=== PATIENT | male | born 1965 | race Caucasian/White ===

== ENCOUNTER 2023-06-07 13:02 | Emergency (ER) | payer OTHER, SELFPAY ==
[2023-06-07 13:04] VITALS: BP 134/85
--- NOTE | 2023-06-07 14:04 | ED.GENMED ---
History of Present Illness
General
Chief Complaint: Fall
Source: patient and spouse
Time Seen by Provider: 06/07/23 13:55
Travel History
Have you had any contact with someone who has COVID-19?: No
Do you have any symptoms of coronavirus? Fever > 100 degrees, chills, cough, shortness of breath, sore throat, loss of taste or smell, muscle aches, or headache?: No
History of Present Illness
History of Present Illness:
57-year-old male with past medical history of chronic back pain and lower extremity neuropathy, hypertension, GERD, diabetes presenting to the emergency department. He was at the top of the stairs when his left leg gave out from under him and he
slid approximately 10 stairs down striking the back of his head and lower back on the stairs but noting his right foot is what is bothering him the most. Patient did have some skin tears to the dorsal aspect of multiple toes. At baseline patient
already has ambulatory dysfunction secondary to the paresthesias/neuropathy. Patient follows with a chronic pain specialist with whom he has an appointment with in 2 weeks. He has a spinal stimulator in place and has a pain pump but that is
currently turned off.
Past History
Past History
ED Past Medical History: Cancer (Prostate), GERD, HTN, NIDDM, Other (chronic back and neck pain) and Other (Neuropathy both lower extremities)
ED Past Surgical History: Orthopedic (back surgery) and Urological
Social History
Tobacco: Former smoker
Alcohol: None
Drug: None
Personal:
Living: with family
Review of Systems
Review of Systems
All Other Systems: ROS reviewed and negative except as documented in HPI and ROS
Phy Exam
Physical Exam
Physical Exam:
VITAL SIGNS: Vital signs reviewed, cooperative
DISTRESS: No active disease
EYES: Pupils reactive, no orbital trauma
NOSE: No deformity or epistaxis
FACE AND SCALP: No scalp or facial trauma, external canals no blood
NECK: Supple nontender
BACK: Back nontender, pelvis stable to compression, pain pump to left lower back
RESPIRATORY: No distress, breath sounds normal, no tender chest wall
CARDIAC: No murmur, pulses equal and strong
ABDOMEN: Soft nontender bowel sounds normal, pain pump to RLQ
SKIN: multiple small skin tears/abrasions over dorsal aspect right foot concentrated around the toes/digits without active bleeding no bleeding, color normal
EXTREMITIES: TTP to 4th-5th digit of RLE
NEUROLOGICAL: Alert, oriented, no motor deficits
PSYCH: Mood affect normal
Scores
Heart Failure Risk
Heart Failure Risk Score: Not Applicable
Heart Score for Chest Pain Patients
STEMI patient?: Not applicable
Withdrawal Assessment of Alcohol
Withdrawal Assessment Completed?: Not applicable
Course
Orders/Labs/Results
Orders:
Orders
06/07/23 14:01
CT Head W/o Iv Contrast Urgent
Comment:
Reason For Exam: fall down flight of stairs, head strike
CR Foot - Right Min 3 Views Urgent
Comment:
Reason For Exam: fall, pain across all toes/digits
06/07/23 15:05
Ortho Boot Right- Treatment ONCE
Short or tall?: Tall
Walker [Treatment- Walker] ONCE
06/07/23 15:57
Tetanus/Diphth/Acelpertussis [Adacel] 0.5 ml IM .ONCE ONE
Vital Signs
Initial and Last Documented VS:
Initial Vital Signs
Temp Pulse Resp BP Pulse Ox
98.3 F 59 18 134/85 98
06/07/23 13:04 06/07/23 13:04 06/07/23 13:04 06/07/23 13:04 06/07/23 13:04
Last Documented Vital Signs
Temp Pulse Resp BP Pulse Ox
98.3 F 64 18 134/85 100
06/07/23 13:04 06/07/23 16:11 06/07/23 13:04 06/07/23 13:04 06/07/23 16:11
MDM/Problems Addressed
Differential Diagnosis Includes:
Superficial head injury, foot contusion, fracture, less concern for intracranial bleed or fracture
MDM/Problems Addressed:
57-year-old male presenting to the emergency department for evaluation after an accidental fall down approximately 10 steps, patient notes that he initially went up into the air and landed on his back/head and then slid down the remaining steps.
Patient states the area of most concern is the right fourth and fifth digit on his foot. He believes his tetanus vaccine is up-to-date. Use of anticoagulants but given the mechanism will obtain CT of the head. Assessment following.
*Radiology
Radiology exam reviewed: preliminary read by ED provider (Fracture of the distal phalanx of the great toe. There is also a fourth metatarsal fracture of the right foot.) and radiology read reviewed (CT of the head is negative for any acute
pathology)
*Pulse Oximetry
Patient hypoxic: no
*Critical Care Note
Total Time (30-74mins, 75-104mins- exclusive of procedures): Not Applicable
Patient Management
Discussion with other providers: Correction Officer Supervisor
Escalation/DeEscalation of care consider admission/obs:
Patient's x-ray of the foot reveals a fracture of the great toe proximal phalanx there is also a fourth metatarsal fracture.. Due to his history of neuropathy I notified patient's engineering inspector, Dr. Meehan, who agrees with plan for orthopedic
boot and walker for stability and will follow-up with the patient closely for continued outpatient monitoring. Patient and spouse contacted family doctor and patient does need a tetanus vaccine so we will update this for the patient prior to
discharge. There precautions but otherwise stable for discharge home.
ED Attending Note
-
Portions of this chart may have been created with voice recognition software.� Occasional wrong word or��sound alike� substitutions may have occurred due to the inherent limitations of voice recognition software.
Discharge Plan
Departure
Patient Disposition: Home (Routine Discharge)
Date of Disposition: 06/07/23
Time of Disposition: 15:53
Patient with high blood pressure during this ER visit?: No
Discharge Problem:
Closed fracture of fourth metatarsal of right foot, Closed fracture of right great toe, Fall down stairs
Instructions: Foot Fracture (DC)
Prescriptions:
No Action
metformin 500 MG tablet
500 mg PO BID@0800,1700 30 Days Qty: 60 0RF
atorvastatin 80 mg tablet
80 mg PO QPM
atenolol 100 mg tablet
100 mg PO DAILY
morphine 30 mg tablet extended release
30 mg PO Q12H
Patient Comments:
07/03/2022: last filled 06/23/22, 60 tabs for 30 days from [id number]
oxycodone 15 mg tablet
15 mg PO Q6H PRN (Reason: moderate pain)
Patient Comments:
07/03/2022: last filled 06/23/22, 120 tabs for 30 days from [id number]
tamsulosin 0.4 mg capsule
0.4 mg PO DAILY
gabapentin 800 mg tablet
800 mg PO QID
paroxetine HCl 20 mg tablet
20 mg PO DAILY
pantoprazole 40 mg tablet,delayed release (DR/EC)
40 mg PO DAILY
aspirin 81 mg tablet,chewable
81 mg PO DAILY
lisinopril 5 mg tablet
5 mg PO DAILY
albuterol sulfate 90 mcg/actuation HFA aerosol inhaler
2 puff INHALATION R Q6 PRN (Reason: sob/wheezing)
insulin glargine [Basaglar KwikPen U-100 Insulin] 100 unit/mL (3 mL) Insulin Pen
15 unit SC HS
tadalafil 5 mg tablet
5 mg PO HS
doxycycline monohydrate 100 mg tablet
100 mg PO BID Qty: 20 0RF
Referrals:
Tabatha,Celine O., DO [Family Provider] -
Maricel Meehan, DPM [Specified Professional Personl] -
Interventions
Interventions:
*Risk Screen - Suicide Last Done: 06/07/23 13:09
*General Assessment Last Done: 06/07/23 13:09
*Neglect/Abuse Screening Last Done: 06/07/23 13:09
*ED COVID-19 Vaccine History Last Done: 06/07/23 16:11
*Nursing Disposition Last Done: 06/07/23 16:11
ED-Musculoskeletal Assessment Last Done: 06/07/23 16:11
ED- Neurological Assessment Last Done: 06/07/23 16:11
ED-Skin Assessment Last Done: 06/07/23 16:11
Discharge Date and Time
Discharge Date/Time: 06/07/23 16:12
[2023-06-07] MEDS: ADACEL 0.5 ML IM (16:06)
== END 2023-06-07 16:12 | disposition home or self-care (01) ==
LOC: EMR 13:02
PROVIDERS: EMERGENCY PHYSICIAN Emergency Medicine; FAMILY PHYSICIAN Family Medicine
DX: S92.341A Displaced fracture of fourth metatarsal bone, right foot, initial encounter for closed fracture (principal); S92.424A Nondisplaced fracture of distal phalanx of right great toe, initial encounter for closed fracture; W10.9XXA Fall (on) (from) unspecified stairs and steps, initial encounter; Z87.891 Personal history of nicotine dependence; Z23 Encounter for immunization
CPT/HCPCS: 99284; 90471; 70450; 73630; 90715